=== PATIENT | female | born 1950 | race Caucasian/White ===

== ENCOUNTER → 2017-02-17 | Outpatient (CLI) | payer SELFPAY ==
--- NOTE | 2017-02-18 08:45 | MM ---
Reason for exam: screening (asymptomatic). Baseline mammogram. History: Patient is postmenopausal and had first child at age 31. Physical Findings: Nurse did not find any significant physical abnormalities on exam. MG Screening Mammo w CAD Bilateral CC and MLO view(s) were taken. The breast tissue is heterogeneously dense. This may lower the sensitivity of mammography. Focal asymmetry in the left upper outer quadrant, anterior position. These results were verbally communicated with the patient and result sheet given to the patient on 02/17/17. ASSESSMENT: Benign, BI-RAD 2 RECOMMENDATION: Routine screening mammogram of both breasts in 1 year.
== END | disposition home or self-care (01) ==
LOC: RADMAMWWP 15:59
PROVIDERS: ATTEND Internal Medicine
DX: Z12.31 Encounter for screening mammogram for malignant neoplasm of breast (principal)

== ENCOUNTER 2017-10-15 19:16 | Emergency (ER) | payer OTHER ==
--- NOTE | 2017-10-15 20:21 | ED ---
Lower Extremity Injury HPI - General Chief Complaint: Extremity Injury, Lower Stated Complaint: Toe pain Source: patient Mode of arrival: ambulatory Limitations: no limitations - History of Present Illness Initial Comments: Patient is a 67-year-old female presenting to the emergency department for right foot pain. Patient states that she has a history of Raynaud's and is having swelling and pain in the right fourth toe. She states that she may have injured it approximately 2-3 days ago when she tripped on the stairs. However, she is not sure if this is a result in the pain. She states that the rest of her foot is at baseline and that is usually cool to the touch. She states that she is concerned that there may be something else: All of the foot in that she has normal range of motion as well sensation foot. - Related Data Home Medications Medication Instructions Recorded Confirmed Cholecalciferol [Vitamin D3] 2,000 unit PO DAILY 10/15/17 10/15/17 Verapamil HCl [Verapamil ER] 180 mg PO HS 10/15/17 10/15/17 Allergies Allergy/AdvReac Type Severity Reaction Status Date / Time grapefruit AdvReac Unknown Verified 10/15/17 20:23 Review of Systems ROS Statement: Those systems with pertinent positive or pertinent negative responses have been documented in the HPI. Constitutional: Negative for chills, fatigue and fever. HENT: Negative for congestion. Respiratory: Negative for chest tightness, shortness of breath and wheezing. Cardiovascular: Negative for chest pain and palpitations. Gastrointestinal: Negative for abdominal pain. Negative for abdominal distention , diarrhea, nausea and vomiting. Genitourinary: Negative for dysuria. Musculoskeletal: Negative for back pain, neck pain and neck stiffness. Positive for right fourth toe pain and swelling Skin: Positive for color change Neurological: Negative for dizziness, speech difficulty, weakness and light- headedness. Psychiatric/Behavioral: Negative for agitation and confusion. The patient is not nervous/anxious. ROS Other: All systems not noted in ROS Statement are negative. Past Medical History Additional Past Medical History / Comment(s): Raynauds. Irregular heartbeat. History of Any Multi-Drug Resistant Organisms: None Reported Past Surgical History: Tonsillectomy Past Psychological History: No Psychological Hx Reported Smoking Status: Never smoker Past Alcohol Use History: None Reported Past Drug Use History: None Reported General Exam - General Exam Comments Initial Comments: Physical Exam Constitutional: Pt is oriented to person, place, and time. Pt appears well- developed and well-nourished. No distress. HENT: Head: Normocephalic and atraumatic. Eyes: EOM are normal. Neck: Normal range of motion. Neck supple. Cardiovascular: Normal rate, regular rhythm, S1 normal, S2 normal and normal heart sounds. Exam reveals no gallop and no friction rub. No murmur heard. 2+ DP and PT pulses on both feet present. Capillary refill less than 2 seconds and the nailbed of the fourth right toe Pulmonary/Chest: Effort normal and breath sounds normal. No tachypnea and no bradypnea. No respiratory distress. No wheezes or rales noted. Abdominal: Soft. Bowel sounds are normal. Pt exhibits no shifting dullness, no distension, no pulsatile liver, no fluid wave, no abdominal bruit and no ascites. There is no tenderness. There is no rigidity, no rebound, no guarding, no tenderness at McBurney's point and negative Escoto's sign. Musculoskeletal: Normal range of motion of right foot. Ecchymosis and effusion of the right fourth toe. Neurological: Pt is alert and oriented to person, place, and time. No cranial nerve deficit. Skin: Skin is warm and dry. No rash noted. Pt is not diaphoretic. No erythema. No pallor. Psychiatric: Pt has a normal mood and affect. Pt behavior is normal. Thought content normal. Limitations: no limitations Course Vital Signs 10/15/17 19:40 Temperature 98.1 F Pulse Rate 88 Respiratory 18 Rate Blood Pressure 190/92 O2 Sat by Pulse 98 Oximetry Medical Decision Making - Medical Decision Making X-ray showed no evidence of acute pathology including fracture. It is felt that the symptoms that the patient has as well as exam findings are consistent with traumatic injury and not vascular injury. Nonetheless, Dr. Bernal was contacted and he agreed to see the patient within the next few days for evaluation of vasculature. This is explained to patient and she is agreeable to plan. Disposition Clinical Impression: Toe pain Disposition: HOME SELF-CARE Condition: Good Instructions: Foot Contusion (ED) Referrals: Bladimir Higuera MD [Primary Care Provider] - 1-2 days Memo Bernal MD [STAFF PHYSICIAN] - 1-2 days Time of Disposition: 21:14
--- NOTE | 2017-10-15 20:50 | XR ---
EXAMINATION TYPE: XR foot complete RT DATE OF EXAM: 10/15/2017 COMPARISON: NONE HISTORY: 67-year-old female pain and redness mostly around the fourth digit TECHNIQUE: 3 views FINDINGS: Osteopenia. Moderate degenerative change first MTP joint. Moderate-sized plantar calcaneal spur. No a cute fracture, subluxation, or dislocation. Bipartite tibial sesamoid. IMPRESSION: No acute osseous abnormality seen. Moderate first MTP joint OA and a plantar calcaneal spur.
--- NOTE | 2017-10-15 21:37 | ED ---
Medical Decision Making - Medical Decision Making Initially the patient was somewhat agreeable to the plan of following up. However, she is insistent that the toe may be causing redness and that she did not hit it. It was extensively advised with both her and her son who is bedside that this is likely not felt to be a vascular issue. It was also offered that she could be transferred to a different facility that had immediate arterial Doppler studies available. However, she continued to deny the request and stated that she wanted a second opinion from a different physician. It is explained that both myself and Dr. Griffiths do not feel that it is a vascular issue but that we would be more than happy to send her to a different facility that could have immediate studies available. Patient became angry and stated that she wanted a second opinion from anyone including the nurse. Nursing staff did evaluate the patient and counseled the patient accordingly. Patient is also concerned that she could go home and have a stroke in that she has a cardiac condition. Based on clinical exam, there is no indication that the patient has cardiac or neuro pathology at the time of discharge. Patient was however advised to return to emergency department and she felt that her clinical course was deteriorating. Disposition Clinical Impression: Toe pain Disposition: HOME SELF-CARE Condition: Good Instructions: Foot Contusion (ED) Referrals: Bladimir Higuera MD [Primary Care Provider] - 1-2 days Memo Bernal MD [STAFF PHYSICIAN] - 1-2 days
[2017-10-15 21:47] VITALS: BP 131/78; PULSE 68; RESP 16; TEMP 97.8
== END 2017-10-15 21:47 | disposition home or self-care (01) ==
LOC: EC 19:16
DX: M79.674 Pain in right toe(s) (principal); M79.89 Other specified soft tissue disorders; Z91.018 Allergy to other foods; Z79.899 Other long term (current) drug therapy
CPT/HCPCS: 99283

== ENCOUNTER 2022-11-17 18:38 | Inpatient (IN) | payer MEDICARE ==
--- NOTE | 2022-11-17 20:20 | ED ---
Fall HPI - General Chief Complaint: Fall Stated Complaint: Fall Time Seen by Provider: 11/17/22 19:09 Source: patient, EMS Mode of arrival: EMS - History of Present Illness Initial Comments: Patient is a 72-year-old female presenting with chief complaint of left leg pain after a trip and fall today. Patient states that she tripped on uneven pavement earlier today. She denies any head injury, loss of consciousness, or use of blood thinners. He was given morphine by EMS and states that greatly improved her pain. No headache, dizziness, nausea, vomiting, vision or hearing changes, neck pain or stiffness, chest pain, difficulty breathing, numbness, tingling. - Related Data Home Medications Medication Instructions Recorded Confirmed Verapamil HCl [Verapamil ER] 180 mg PO DAILY 10/15/17 11/17/22 Allergies Allergy/AdvReac Type Severity Reaction Status Date / Time grapefruit AdvReac Unknown Verified 11/17/22 19:35 Review of Systems ROS Statement: Those systems with pertinent positive or pertinent negative responses have been documented in the HPI. ROS Other: All systems not noted in ROS Statement are negative. Past Medical History Additional Past Medical History / Comment(s): Raynauds. Irregular heartbeat. History of Any Multi-Drug Resistant Organisms: None Reported Past Surgical History: Tonsillectomy Past Psychological History: No Psychological Hx Reported Smoking Status: Never smoker Past Alcohol Use History: None Reported Past Drug Use History: None Reported General Exam Limitations: no limitations General appearance: alert, in no apparent distress Head exam: Present: atraumatic, normocephalic, normal inspection Eye exam: Present: normal appearance, EOMI Neck exam: Present: normal inspection, full ROM Respiratory exam: Present: normal lung sounds bilaterally. Absent: respiratory distress, wheezes, rales, rhonchi, stridor Cardiovascular Exam: Present: regular rate, normal rhythm, normal heart sounds. Absent: systolic murmur, diastolic murmur, rubs, gallop, clicks Left Hip exam: Present: tenderness. Absent: full ROM Upper Leg exam: Present: tenderness. Absent: full ROM Neurological exam: Present: alert, oriented X3, CN II-XII intact Expanded Patient oriented to: Present: person, place, time Speech: Present: fluid speech Eye Response: (4) open spontaneously Motor Response: (6) obeys commands Verbal Response: (5) oriented Cut Off Total: 15 Psychiatric exam: Present: normal affect, normal mood Skin exam: Present: warm, dry, intact, normal color. Absent: rash Course Vital Signs 11/17/22 11/17/22 11/17/22 18:47 18:55 20:27 Temperature 97.2 F L Pulse Rate 90 93 Respiratory 20 16 Rate Blood Pressure 204/121 195/107 195/98 O2 Sat by Pulse 98 100 Oximetry 11/17/22 21:47 Temperature Pulse Rate 88 Respiratory 16 Rate Blood Pressure 173/94 O2 Sat by Pulse Oximetry Medical Decision Making - Medical Decision Making Was pt. sent in by a medical professional or institution (, PA, DIGITAL HARDWARE DESIGN ENGINEER, urgent care, hospital, or [facility]...) When possible be specific @ -No Did you speak to anyone other than the patient for history (EMS, parent, family, police, friend...)? What history was obtained from this source @ -No Did you review nursing and triage notes (agree or disagree)? Why? @ -I reviewed and agree with nursing and triage notes Were old charts reviewed (outside hosp., previous admission, EMS record, old EKG, old radiological studies, urgent care reports/EKG's, [facility] records)? Report findings @ -No old charts were reviewed Differential Diagnosis (chest pain, altered mental status, abdominal pain women, abdominal pain men, vaginal bleeding, weakness, fever, dyspnea, syncope, headache, dizziness, GI bleed, back pain, seizure, CVA, palpatations, mental health, musculoskeletal)? @ -Differential includes fracture, sprain, strain, this is not an all inclusive list EKG interpreted by me (3pts min.). @ -As above X-rays interpreted by me (1pt min.). @ -X-ray shows comminuted intertrochanteric fracture of the left femur extending into the metaphysis CT interpreted by me (1pt min.). @ -None done U/S interpreted by me (1pt. min.). @ -None done What testing was considered but not performed or refused? (CT, X-rays, U/S, labs)? Why? @ -CT of the brain and cervical spine, CBC CMP, and EKG are ordered for surgical clearance, however patient is refusing at this time stating "I don't know if I will get the surgery". Patient is also stating that she does not need head CT because she did not hit her head, refusing CT What meds were considered but not given or refused? Why? @ -None Did you discuss the management of the patient with other professionals (professionals i.e. , PA, DIGITAL HARDWARE DESIGN ENGINEER, lab, RT, psych nurse, social media editor, drilling machine operator, teacher, driver's license reviewing officer, case mgr)? Give summary @ -Discussed with orthopedist director alumni relations Dr. Stokes Was smoking cessation discussed for >3mins.? @ -No Was critical care preformed (if so, how long)? @ -No Were there social determinants of health that impacted care today? How? (Homelessness, low income, unemployed, alcoholism, drug addiction, transportation, low edu. Level, literacy, decrease access to med. care, intermediate, rehab)? @ -No Was there de-escalation of care discussed even if they declined (Discuss DNR or withdrawal of care, Hospice)? DNR status @ -No What co-morbidities impacted this encounter? (DM, HTN, Smoking, COPD, CAD, Cancer, CVA, ARF, Chemo, Hep., AIDS, mental health diagnosis, sleep apnea, morb id obesity)? @ -None Was patient admitted / discharged? Hospital course, mention meds given and route, prescriptions, significant lab abnormalities, going to OR and other pertinent info. @ -Patient is a 72-year-old female presenting for evaluation post fall today. Patient tripped and fell on uneven pavement. She is complaining of left-sided leg and hip pain. On physical examination there are no focal neurological deficits. Patient denies head injury, loss of consciousness, use of blood thinners. Patient is refusing head CT, states that she did not hit her head and doesn't need one. X-ray shows intertrochanteric fracture of the femur. I spoke with Dr. Stokes who accepted admission. Internal medicine was consulted for surgical clearance. EKG, lab work are ordered, however patient is refusing these at this time stating that she does not know if she will accept surgery. I explained to the patient that surgery is necessary for repair of the fracture. She is agreeable with admission at this time. I discussed this case with my attending Dr. Hernandez Undiagnosed new problem with uncertain prognosis? @ -No Drug Therapy requiring intensive monitoring for toxicity (Heparin, Nitro, Insulin, Cardizem)? @ -No Were any procedures done? @ -No Diagnosis/symptom? @ -Intertrochanteric femur fracture Acute, or Chronic, or Acute on Chronic? @ -Acute Uncomplicated (without systemic symptoms) or Complicated (systemic symptoms)? @ -Complicated Side effects of treatment? @ -No Exacerbation, Progression, or Severe Exacerbation? @ -No Poses a threat to life or bodily function? How? (Chest pain, [place], [place], pneumonia, PE, COPD, DKA, ARF, appy, cholecystitis, CVA, Diverticulitis, Homicidal, Suicidal, threat to staff... and all critical care pts) @ -Yes - Lab Data Result diagrams: 11/17/22 22:30 11/17/22 22:30 Disposition Clinical Impression: Femur fracture Disposition: ADMITTED IP TO THIS [facility] Condition: Fair Time of Disposition: 20:58 Decision to Admit Reason: Admit from EC Decision Date: 11/17/22 Decision Time: 20:58
--- NOTE | 2022-11-17 20:28 | XR ---
EXAMINATION TYPE: XR Hip LT and AP Pelvis, XR femur LT DATE OF EXAM: 11/17/2022 8:07 PM INDICATION: Patient age:Female; 72 years old; Reason for study: fall; PHH. COMPARISON: None. TECHNIQUE: The left hip was examined in the frontal and lateral projections and a AP pelvis. Left femur was evaluated in frontal and lateral views. FINDINGS: Comminuted intertrochanteric fracture of the left femur extending into the metaphysis. No a dditional fractures of the pelvis. Slight varus deformity. Large fragment involving the lesser trocha nter noted. IMPRESSION: Comminuted intertrochanteric fracture of the left femur extending into the metaphysis.
--- NOTE | 2022-11-17 20:29 | XR ---
EXAMINATION TYPE: XR chest 1V DATE OF EXAM: 11/17/2022 8:07 PM COMPARISON: Chest radiographs from 02/07/2013 TECHNIQUE: XR chest 1V Portable AP radiograph of the chest. CLINICAL INDICATION:Female, 72 years old with history of FALL; FINDINGS: Lungs/Pleura: There is no evidence of pleural effusion, focal consolidation, or pneumothorax. Pulmonary vascularity: Unremarkable. Heart/mediastinum: Cardiomediastinal silhouette is unremarkable. Right hilum is more prominent than p rior in 2011. Musculoskeletal: No acute osseous pathology. IMPRESSION: 1. No acute cardiopulmonary disease/process. 2. Increased prominence of the right hilum consider further evaluation with CT chest on a nonemergen t basis.
[2022-11-17] MEDS ORDERED: MORPHINE SULFATE 4 MG/ML SYRINGE IV PRN (20:55)
[2022-11-17] MEDS ORDERED: KETOROLAC 15 MG/ML 1 ML VIAL IVP PRN (20:55)
[2022-11-17] MEDS ORDERED: NALOXONE 0.4 MG/ML 1 ML VIAL IV PRN (20:55)
[2022-11-17 22:44] LABS: Basophils % (A) 0 %; Eosinophils # (A) 0.1 k/uL (0-0.7); Eosinophils % (A) 1 %; HCT 39.2 % (34.0-46.0); HGB 12.9 gm/dL (11.4-16.0); Lymphocytes # (A) 0.7 k/uL (1.0-4.8); Lymphocytes % (A) 7 %; MCH 32.3 pg (25.0-35.0); MCV 97.7 fL (80.0-100.0); Mean Platelet Volume 7.2; Monocytes # (A) 0.4 k/uL (0-1.0); Monocytes % (A) 4 %; Neutrophils # (A) 9.1 k/uL (1.3-7.7); Neutrophils % (A) 88 %; Platelet Count 168 k/uL (150-450); RBC 4.01 m/uL (3.80-5.40); RDW 12.4 % (11.5-15.5); WBC 10.4 k/uL (3.8-10.6)
[2022-11-17 22:54] LABS: ALT 20 U/L (4-34); AST 35 U/L (14-36); African American GFR (CKD) >90 (>60 ml/min/1.73 sqM); Albumin 3.8 g/dL (3.5-5.0); Alkaline Phosphatase 81 U/L (38-126); Anion Gap 3 mmol/L; Blood Urea Nitrogen 14 mg/dL (7-17); Calcium 8.4 mg/dL (8.4-10.2); Carbon Dioxide 28 mmol/L (22-30); Chloride 105 mmol/L (98-107); Glucose 117 mg/dL (74-99); Non-African American GFR(CKD) >90 (>60 ml/min/1.73 sqM); Sodium 136 mmol/L (137-145); Total Bilirubin 0.8 mg/dL (0.2-1.3); Total Protein 6.2 g/dL (6.3-8.2)
[2022-11-17 22:58] LABS: Potassium 4.3 mmol/L (3.5-5.1)
--- NOTE | 2022-11-18 04:55 | P.CONS ---
History of Present Illness - Reason for Consult Consult date: 11/18/22 surgical clearance - Chief Complaint trip and fall - History of Present Illness 72 year old female with raynauds and irregular heart beat patient at her baseline status of health, she suffered from a trip and fall today , resulted in severe pain in her left hip and left side of the chest, denies any head injury , passing out , dizziness . SOB, nausea , vomiting, or any focal nuero deficits. patient cam e in via EMS, received morphine en route that helped with pain . no open wounds. no numbness or tingling in left foot she denies any recent episodes of CHF, WA, syncope, seizure, arrhythmia. she is active at baseline able to walk long distances and do yard and house chores. Review of Systems Pertinent positives as noted in HPI. All other systems were reviewed and are negative Past Medical History Additional Past Medical History / Comment(s): Raynauds. Irregular heartbeat. History of Any Multi-Drug Resistant Organisms: None Reported Past Surgical History: Tonsillectomy Past Psychological History: No Psychological Hx Reported Smoking Status: Never smoker Past Alcohol Use History: None Reported Past Drug Use History: None Reported Medications and Allergies Home Medications Medication Instructions Recorded Confirmed Type Verapamil HCl [Verapamil ER] 180 mg PO DAILY 10/15/17 11/17/22 History Allergies Allergy/AdvReac Type Severity Reaction Status Date / Time grapefruit AdvReac Unknown Verified 11/17/22 19:35 Physical Exam Vitals: Vital Signs Temp Pulse Pulse Resp BP BP Pulse Ox 11/18/22 02:00 98.1 F 85 17 161/88 98 11/17/22 21:47 88 16 173/94 11/17/22 20:27 93 16 195/98 100 11/17/22 18:55 195/107 11/17/22 18:47 97.2 F L 90 20 204/121 98 Intake and Output 11/17/22 11/17/22 11/18/22 14:59 22:59 06:59 Other: Voiding Method Indwelling Catheter Weight 53.524 kg 53.524 kg Constitutional: No acute distress, conversant, pleasant Eyes: Anicteric sclerae, moist conjunctiva, Pupils equal round reactive to light ENMT: NC/AT Oropharynx clear, no erythema, or exudates Neck: Supple, no masses, or JVD No carotid bruits No thyromegaly Lungs: Clear to auscultation Clear to percussion Normal respiratory effort, no accessory muscle use Cardiovascular: Heart regular in rate and rhythm, No murmurs, gallops, or rubs No peripheral edema Abdominal: Soft Nontender, no guarding, rebound or rigidity Abdomen moving with respiration Normoactive bowel sounds No hepatomegaly, No splenomegaly No palpable mass No abdominal wall hernia noted Skin: Normal temperature, tone, texture, turgor No induration No subcutaneous nodules No rash, lesions No ulcers Extremities: shortening and external rotation of the left lower extremity No digital cyanosis No clubbing Pedal pulses intact and symmetrical Radial pulses intact and symmetrical No calf tenderness Psychiatric: Alert and oriented to person, place and time Appropriate affect fair judgement Neuro Muscles Strength 5/5 in all 4 extremities , except limited exam over left lower extremity due to pain Sensation to light touch grossly present throughout Cranial nerves II-XII grossly intact Lymphatics: no palpable cervical or supraclavicular lymph nodes Results CBC & Chem 7: 11/17/22 22:30 11/17/22 22:30 Labs: Abnormal Lab Results - Last 24 Hours (Table) 11/17/22 11/17/22 Range/Units 22:30 22:30 Neutrophils # 9.1 H (1.3-7.7) k/uL Lymphocytes # 0.7 L (1.0-4.8) k/uL Sodium 136 L (137-145) mmol/L Creatinine 0.50 L (0.52-1.04) mg/dL Glucose 117 H (74-99) mg/dL Total Protein 6.2 L (6.3-8.2) g/dL Assessment and Plan Assessment: acute comminuted left intertrochanteric fracture of left femur , secondary to mechanical fall. await surgical input h/o of irregular heart beat h/o raynauds resume verapamil 180 mg daily PO 72 year old female presented with acute left intertrochanteric femur fracture. patient denies any recent episodes of acute WA, CHF, arrhythmia , syncope, or seizure. she is active at baseline able to perform yard and house chores, and walk long distances. active at level > 4 METS. she denies history of stroke, CHF, CAD, DM , or CKD or HLD. patient can proceed to planned surgical intervention of her left femur fracture with moderate but acceptable perioperative cardiovascular risk with no identifiable modifiable risk factors. this has been explained to the patient and her son, she verbalized understanding , but she would like to speak with her clinical application consultant before any decision regarding surgery , and also would like to postpone surgery for a day or two before proceeding. EKG reviewed showing NSR , no acute ST changes , or arrhythmias labs reviewed and unremarkable full code DVT PPX heparin sc tid pain control with morphine 4 mg IVP PRN q3hrs toradol 15 mg IVP prn q6hr xanax po 0.25 prn for anxiety zofran prn 4 mg q8hr for nausea vomiting thank you for this consultation
[2022-11-18] MEDS ORDERED: ALPRAZolam 0.25 MG TAB PO PRN (04:56)
[2022-11-18] MEDS ORDERED: ONDANSETRON 4 MG/2 ML VIAL IVP PRN (04:56)
[2022-11-18] MEDS: SODIUM CHLORIDE 0.9% 1,000 ML IV SCH (05:35)
--- NOTE | 2022-11-18 08:52 | P.CRDCN ---
History of Present Illness Consult date: 11/18/22 Reason for Consult (text): patient requesting to talk to cardio History of present illness: History of present illness: This is a 72-year-old female patient of Dr. Ambrose with past medical history of paroxysmal atrial fibrillation refusing anticoagulation, paroxysmal atrial tachycardia - asymptomatic, dyslipidemia not on statin, hypertension uncontrolled patient refuses to take medication. Patient was last seen in the office in February 2022. No medication changes were made at that time. Patient presented to the hospital due to trip and fall with pain in her left hip and found to have a left femur fracture. At this time, patient is refusing to undergo surgical intervention. Patient denies having any chest pain or shortness of breath. EKG sinus rhythm with no acute ST changes Chest x-ray: no acute cardiopulmonary disease. Increased prominence of the right hilum consider further evaluation with CT. Left hip x-ray, femur, pelvis: Comminuted intertrochanteric fracture of the left femur extending into the metaphysis WBC 10.4, hemoglobin 12.9, platelet count 129. Sodium 136, potassium 4.3, BUN 14 creatinine 0.5. Blood sugar 117. Liver function tests are normal. Home cardiac medications: verapamil 180 mg daily Echocardiogram 2012 revealed normal EF, thickened mitral leaflet, moderate mitral regurgitation and RV mildly increased RVSP Review Of Systems: At the time of my evaluation: Constitutional: No fever, no chills. No weakness, fatigue no lethargy. EENT: No headache. No dizziness. Lungs: No shortness of breath, cough, no sputum production. No wheezing. Cardiovascular: No chest pain, no lower extremity edema. No palpitations. No paroxysmal nocturnal dyspnea. No orthopnea. No lightheadedness or dizziness. No syncopal episodes. Abdominal: No abdominal pain. No nausea, vomiting. No diarrhea. Genitourinary: Tracy in place. Musculoskeletal: No myalgias. No muscle weakness, no frequent falls. Severe left hip pain Integumentary: No wounds. No rash. No unusual bruising. Neurologic: No aphasia. No facial droop. No change in mentation. No head injury. No headache. Physical examination: Gen: This is a 72-year-old female. She is resting in bed and appears to be quite uncomfortable due to pain in the left hip. VS: reviewed HEENT: Head is atraumatic, normocephalic. Pupils equal, round. Sclerae is anicteric. NECK: Supple. No JVD. . LUNGS: Clear to auscultation. No wheezes or rhonchi. No intercostal retractions. HEART: Regular rate and rhythm. No murmur. ABDOMEN: Soft No tenderness. EXTREMITIES: No pedal edema. No calf tenderness. NEUROLOGICAL: Patient is awake, alert and oriented x3. Assessment: Left femur fracture Paroxysmal atrial fibrillation refusing anticoagulation History of paroxysmal atrial tachycardia Dyslipidemia not on statin Hypertension Plan: Resume verapamil unknown name milligrams daily Obtain 2-D echocardiogram and Doppler study to assess cardiac structure and function Further recommendations to follow based upon clinical course Thank you kindly for this consultation. Nurse practitioner note has been reviewed, I agree with documented findings and plan of care. Patient was seen and examined. Past Medical History Additional Past Medical History / Comment(s): Raynauds. Irregular heartbeat. History of Any Multi-Drug Resistant Organisms: None Reported Past Surgical History: Tonsillectomy Past Psychological History: No Psychological Hx Reported Smoking Status: Never smoker Past Alcohol Use History: None Reported Past Drug Use History: None Reported Medications and Allergies Home Medications Medication Instructions Recorded Confirmed Type Verapamil HCl [Verapamil ER] 180 mg PO DAILY 10/15/17 11/17/22 History Allergies Allergy/AdvReac Type Severity Reaction Status Date / Time grapefruit AdvReac Unknown Verified 11/17/22 19:35 Physical Exam Vitals: Vital Signs Temp Pulse Pulse Resp BP BP Pulse Ox 11/18/22 02:00 98.1 F 85 17 161/88 98 11/17/22 21:47 88 16 173/94 11/17/22 20:27 93 16 195/98 100 11/17/22 18:55 195/107 11/17/22 18:47 97.2 F L 90 20 204/121 98 Intake and Output 11/17/22 11/17/22 11/18/22 14:59 22:59 06:59 Output Total 1000 Balance -1000 Output: Urine 1000 Other: Voiding Method Indwelling Catheter Weight 53.524 kg 53.524 kg Results 11/17/22 22:30 11/17/22 22:30 Cardiac Enzymes 11/17/22 Range/Units 22:30 AST 35 (14-36) U/L CBC 11/17/22 Range/Units 22:30 WBC 10.4 (3.8-10.6) k/uL RBC 4.01 (3.80-5.40) m/uL Hgb 12.9 (11.4-16.0) gm/dL Hct 39.2 (34.0-46.0) % Plt Count 168 (150-450) k/uL Comprehensive Metabolic Panel 11/17/22 Range/Units 22:30 Sodium 136 L (137-145) mmol/L Potassium 4.3 (3.5-5.1) mmol/L Chloride 105 (98-107) mmol/L Carbon Dioxide 28 (22-30) mmol/L BUN 14 (7-17) mg/dL Creatinine 0.50 L (0.52-1.04) mg/dL Glucose 117 H (74-99) mg/dL Calcium 8.4 (8.4-10.2) mg/dL AST 35 (14-36) U/L ALT 20 (4-34) U/L Alkaline Phosphatase 81 (38-126) U/L Total Protein 6.2 L (6.3-8.2) g/dL Albumin 3.8 (3.5-5.0) g/dL Current Medications Generic Name Dose Route Start Last Admin Trade Name Freq PRN Reason Stop Dose Admin Alprazolam 0.25 mg 11/18/22 04:56 Alprazolam 0.25 Mg Tab PO TID PRN Anxiety Heparin Sodium (Porcine) 5,000 unit 11/18/22 08:00 Heparin Sodium,Porcine/Pf 5,000 Unit/0.5 Ml Syringe SQ Q8HR ADI Sodium Chloride 1,000 mls @ 50 mls/hr 11/17/22 21:00 11/18/22 05:35 Saline 0.9% IV Not Given .Q20H ADI Ketorolac Tromethamine 15 mg 11/17/22 20:55 Ketorolac 15 Mg/Ml 1 Ml Vial IVP 11/20/22 20:57 Q6HR PRN Moderate Pain (Scale 4 to 6) Morphine Sulfate 4 mg 11/17/22 20:55 Morphine Sulfate 4 Mg/Ml Syringe IV Q4HR PRN Severe Pain (Scale 7 to 10) Naloxone HCl 0.2 mg 11/17/22 20:55 Naloxone 0.4 Mg/Ml 1 Ml Vial IV Q2M PRN Opioid Reversal Ondansetron HCl 4 mg 11/18/22 04:56 Ondansetron 4 Mg/2 Ml Vial IVP Q6HR PRN Nausea And Vomiting Verapamil HCl 180 mg 11/18/22 09:00 Verapamil Sr 180 Mg Tablet.Er PO DAILY ADI Intake and Output 11/17/22 11/17/22 11/18/22 14:59 22:59 06:59 Output Total 1000 Balance -1000 Output: Urine 1000 Other: Voiding Method Indwelling Catheter Weight 53.524 kg 53.524 kg Patient Weight 11/18/22 06:59 Weight 53.524 kg 11/17/22 22:30 11/17/22 22:30
--- NOTE | 2022-11-18 10:02 | P.HPOR ---
History of Present Illness H&P Date: 11/18/22 Chief Complaint: Left hip pain. This is a 72-year-old female admitted through the emergency department last evening after falling and sustaining injury to her left hip. On exam and x-ray in the emergency department she is found to have a displaced three-part intertrochanteric fracture of left hip. The patient has been seen by cardiology and internal medicine. She has been cleared for surgery today. However, the patient is refusing any surgical intervention today. She states that the man should talk to last evening told her she did not have to have surgery and could take a few days to think about it. She did not let me do a full exam on her. Past Medical History Additional Past Medical History / Comment(s): Raynauds. Irregular heartbeat. History of Any Multi-Drug Resistant Organisms: None Reported Past Surgical History: Tonsillectomy Past Psychological History: No Psychological Hx Reported Smoking Status: Never smoker Past Alcohol Use History: None Reported Past Drug Use History: None Reported Medications and Allergies Home Medications Medication Instructions Recorded Confirmed Type Verapamil HCl [Verapamil ER] 180 mg PO DAILY 10/15/17 11/17/22 History Allergies Allergy/AdvReac Type Severity Reaction Status Date / Time grapefruit AdvReac Unknown Verified 11/17/22 19:35 Physical Examination Osteopathic Statement: *. No significant issues noted on an osteopathic structural exam other than those noted in the History and Physical/Consult. This is a 72-year-old female in some distress secondary to anxiety and possibly paranoia. My exam is limited as she did not cooperate with exam. I did note that she has a significantly shortened and externally rotated left lower extremity. She is moving her feet and ankles in bed. Neurovascular status is grossly intact. Results X-rays reveal a displaced three-part intertrochanteric/near subtrochanteric fracture of the left hip. - Labs Labs: Abnormal Lab Results - Last 24 Hours (Table) 11/17/22 11/17/22 Range/Units 22:30 22:30 Neutrophils # 9.1 H (1.3-7.7) k/uL Lymphocytes # 0.7 L (1.0-4.8) k/uL Sodium 136 L (137-145) mmol/L Creatinine 0.50 L (0.52-1.04) mg/dL Glucose 117 H (74-99) mg/dL Total Protein 6.2 L (6.3-8.2) g/dL H & H 11/17/22 Range/Units 22:30 Hgb 12.9 (11.4-16.0) gm/dL Hct 39.2 (34.0-46.0) % Result Diagrams: 11/19/22 05:39 11/19/22 05:39 Assessment and Plan (1) Intertrochanteric fracture of left hip Current Visit: Yes Status: Acute Code(s): S72.142A - DISPLACED IN TERTROCHANTERIC FRACTURE OF LEFT FEMUR, INIT SNOMED Code(s): 030158716 (2) History of noncompliance with medical treatment Current Visit: Yes Status: Acute Code(s): Z91.199 - PT NONCOMPL WITH OTHER MED TRTMT AND REGIMEN D/T UNSP REASON SNOMED Code(s): 446076546 (3) Femur fracture Current Visit: Yes Status: Acute Code(s): S72.90XA - UNSP FRACTURE OF UNSP FEMUR, INIT ENCNTR FOR CLOSED FRACTURE SNOMED Code(s): 37035265 Plan: The clinical and x-ray findings are discussed with the patient in detail. I spent about 30 minutes with the patient discussing risk versus benefitSurgical intervention. I advised the patient that without surgery she would be unable to even sit up or turn in bed without severe pain. She would likely be bedridden for the rest of her life. The patient was asking the same questions repeatedly and telling me the same things over and over during my exam with her. The patient's son came in during the evaluation and she began accusing him of spreading tumors all over town about her and her injury. I asked the patient's son if she had any problems with memory and she became very upset. She was very verbally abusive to her son in the room. According to cardiology there are significant issues with noncompliance with her treatment and care. The patient basically is refusing surgery at this point. I do not believe that she understands the consequences of her decision. I did let the son kncelina that I recommend a psychiatric evaluation. I did put an order for a psychiatric evaluation today if possible. The patient is her own power of estate attorney. We cannot take her to surgery without her consent. I want to be sure that she does understand potential risks and consequences of refusing surgical intervention for her injury. Addendum: I talked with the patient independently several hours later after she had some time to process. She was agreeable to the surgery and seems to understand the implications of her injury and treatment options. She was able to describe the surgery and a simple risk/benefit profile. We will proceed with surgery.
[2022-11-18] MEDS: VERAPAMIL SR 180 MG TABLET.ER PO SCH (11:25)
--- NOTE | 2022-11-18 14:11 | P.CN ---
Psychiatric Consult - . Consult date: 11/18/22 Consult:: 11/18/22 13:36 patient was attempted to be seen today by marine underwriter however nurse claims that patient was after all agreeable to consent to the surgery and apparently her son had signed for the surgery. marine underwriter spoke with DAVID Farris over the phone from [facility] who gave further information and states that patient was now agreeable to have the surgery. she called her attending Dr Abad and returned call back to marine underwriter and they are agreeable to try to do emergent surgery tonight however are requesting a full psych assessment tomorrow once patient is post op. Phytopathology Teacher will evaluate patient tomorrow afternoon. please call with any questions or concerns.
[2022-11-18] MEDS: HEPARIN SODIUM,PORCINE/PF 5,000 UNIT/0.5 ML SYRINGE SQ SCH ×3 (14:36→23:16)
--- NOTE | 2022-11-18 15:11 | P.PN ---
Progress Note - Text Progress Note Date: 11/18/22 Some physicians hospitalist follow-up note: Patient seen and examined at bedside. Patient was very emotional today. Patient was very concerned about her surgery today. Patient states that she does not want to have surgery until she gets her self together and everything written down. Patient is refusing pain medications at this time. Psychiatry has been consulted.
[2022-11-18 17:14] LABS: Partial Thromboplastin Time 25.8 sec (22.0-30.0); Prothrombin Time 10.6 sec (9.0-12.0)
[2022-11-18] MEDS ORDERED: LACTATED RINGERS 1,000 ML IV ONE ×2 (17:25→19:15)
[2022-11-18] MEDS ORDERED: SODIUM CHLORIDE 0.9% 50 ML with ceFAZolin 2,000 MG IV ONE ×4 (17:57)
[2022-11-18] MEDS ORDERED: MAGNESIUM HYDROXIDE 2,400 MG/10 ML CUP PO PRN (19:28)
[2022-11-18] MEDS ORDERED: NALOXONE 0.4 MG/ML 1 ML VIAL IV PRN (19:28)
[2022-11-18] MEDS ORDERED: HYDROmorphone 0.5 MG/0.5 ML SYRINGE IVP PRN ×3 (19:28)
[2022-11-18] MEDS ORDERED: TEMAZEPAM 15 MG CAP PO PRN (19:28)
[2022-11-18] MEDS ORDERED: HYDROcodone/APAP 5-325MG 1 EACH TAB PO PRN ×2 (19:28)
[2022-11-18 19:56] LABS: Basophils % (A) 0 %; Eosinophils % (A) 0 %; HCT 40.5 % (34.0-46.0); HGB 13.7 gm/dL (11.4-16.0); Lymphocytes # (A) 1.1 k/uL (1.0-4.8); Lymphocytes % (A) 13 %; MCH 32.2 pg (25.0-35.0); MCHC 33.7 g/dL (31.0-37.0); MCV 95.5 fL (80.0-100.0); Mean Platelet Volume 7.2; Monocytes # (A) 0.6 k/uL (0-1.0); Monocytes % (A) 7 %; Neutrophils % (A) 79 %; Platelet Count 170 k/uL (150-450); RBC 4.24 m/uL (3.80-5.40); RDW 12.4 % (11.5-15.5); WBC 8.9 k/uL (3.8-10.6)
--- NOTE | 2022-11-18 20:08 | XR ---
EXAMINATION TYPE: XR Hip Complete LT DATE OF EXAM: 11/18/2022 COMPARISON: NONE HISTORY: Hip fracture TECHNIQUE: 7 views FINDINGS: Multiple fluoroscopic images were obtained that show placement of intramedullary robert and tr ansverse screw fixing the intertrochanteric fracture left femur. There is 1 minute 33 seconds fluoros copy time recorded. IMPRESSION: No complicating process seen.
[2022-11-18] MEDS: SENNOSIDES-DOCUSATE SODIUM 1 EACH TAB PO SCH (23:17)
[2022-11-19] MEDS: SODIUM CHLORIDE 0.9% 1,000 ML IV SCH ×2 (00:41→15:50)
[2022-11-19] MEDS: LACTATED RINGERS 1,000 ML IV SCH ×3 (00:42→15:50)
[2022-11-19 05:22] LABS: Glucose,Whole Blood 163 mg/dL (70-110)
--- NOTE | 2022-11-19 07:24 | FL ---
Fluoroscopy History: ORIF LT HIP left hip fx. 1:33 sec fl time. 3.3498 DAP.
[2022-11-19 08:51] LABS: Basophils # (A) 0.02 X 10*3/uL (0.00-0.10); Basophils % (A) 0.3 %; Eosinophils # (A) 0 X 10*3/uL (0.04-0.35); Eosinophils % (A) 0 %; HCT 32.4 % (37.2-46.3); HGB 10.7 g/dL (12.0-15.0); Immature Grans, Automated 0.3 %; Lymphocytes # (A) 0.88 X 10*3/uL (0.90-5.00); Lymphocytes % (A) 11.2 %; MCH 31.9 pg (27.0-32.0); MCV 96.7 fL (80.0-97.0); Mean Platelet Volume 9.5 fL (9.5-12.2); Monocytes # (A) 0.55 X 10*3/uL (0.20-1.00); NRBC Per 100 WBC 0 /100 WBCS (0.0-0.0); Neutrophils # (A) 6.41 X 10*3/uL (1.80-7.70); Neutrophils % (A) 81.2 %; Platelet Count 136 X 10*3/uL (140-440); RBC 3.35 X 10*6/uL (4.10-5.20); RDW 12.6 % (11.5-14.5); WBC 7.88 X 10*3/uL (4.50-10.00)
[2022-11-19 09:02] LABS: African American GFR (CKD) 99.6 (60.0-200.0); Albumin 3.7 g/dL (3.8-4.9); Albumin/Globulin Ratio 2.06 (1.60-3.17); Anion Gap 9.3 mmol/L (10.00-18.00); BUN/Creat Ratio 21.71 Ratio (12.00-20.00); Blood Urea Nitrogen 15.2 mg/dL (9.0-27.0); Calcium 8.9 mg/dL (8.7-10.3); Carbon Dioxide 25.7 mmol/L (20.0-27.5); Globulin 1.8 g/dL (1.6-3.3); Potassium 4.1 mmol/L (3.5-5.5); Total Bilirubin 0.9 mg/dL (0.30-1.20); Total Protein 5.5 g/dL (6.2-8.2)
[2022-11-19] MEDS: ENOXAPARIN 40 MG/0.4 ML SYRINGE SQ SCH (10:01)
[2022-11-19] MEDS: VERAPAMIL SR 180 MG TABLET.ER PO SCH (10:01)
[2022-11-19] MEDS: HEPARIN SODIUM,PORCINE/PF 5,000 UNIT/0.5 ML SYRINGE SQ SCH ×2 (10:36→15:39)
--- NOTE | 2022-11-19 11:36 | P.OP ---
Date of Procedure: 11/18/22 Preoperative Diagnosis: Left intertrochanteric hip fracture, unstable Postoperative Diagnosis: same Procedure(s) Performed: left hip cephalomedulary nail Implants: Juanito, short gamma nail 90mm lag screw 37.5 screw Anesthesia: spinal Surgeon: Kaitlin Abad Estimated Blood Loss (ml): 200 Pathology: none sent Condition: stable Disposition: PACU Indications for Procedure: Pt had a ground level fall that resulted in an unstable intertrochanteric fracture. We discussed treatment options and decided to proceed with CMN fixation. Description of Procedure: Patient recieved a spinal block and was moved to the Ginny table. The hip was reduced with the aid of the traction table. The leg was then prepped and draped in normal sterile fashion. A time out was performed. A 5cm incision prox and posterior to the greater trochanter was made. The guide wire was introduced into the starting point on the tip of the greater trochanter in line with the femur. This was confirmed on orthogonal views. The wire was advanced. The opening reamer was used over the guidewire. The reamer and the guide wire was removed. A ball tip wire was then inserted into the femur. Intramedullary placement was confirmed on orthoganal views. Serial reamers up to a 13mm diameter were then utilized over the wire. The nail was then attached to the jig and inserted into the femur to the appropriate depth. The cephalomedullary guide wire was inserted using the tripple sleeve canulas. The placement of the wire was center center on AP and lateral views and advance to within 5mm of the articular surface. This was measured as 90mm and the cannulated drill was then used. A 90mm lag screw was selected and inserted. tip to apex was less than 25mm. The sleeves were removed and attention turned to the distal screw. Using the jig, a 37.5mm screw was inserted into the static hole of the nail. Unfortunately, imaging revealed that the fracture looked distracted and rotated in the subtrochanteric area. The decision was made to removed the distal screw. Traction was let off and the leg was externaly rotated. This improved the reduction. A 37.mm screw was then inserted into the dynamic position to maximize the distance between the two holes. Final views demonstrated acceptable alignment of the fracture with good hardware placement. The wounds were closed with 2.0 vicryl, 4.0 monocryl, and skin glue. Wounds were dressed with gauze and tegaderm. Patient was aroused by the anesthesia team and brought back to PACU in stable condition.
--- NOTE | 2022-11-19 11:37 | P.PN ---
Subjective Progress Note Date: 11/19/22 Principal diagnosis: Left hip fracture. Status post IT nail left hip. This is a 72-year-old female who is postop day #1 status post closed reduction with insertion of intertrochanteric nail left hip. The patient is resting comfortably. She does awaken for the exam. She is much calmer her today. I'm able to have a fairly normal conversation with her this morning. She complains of minimal pain. She is refusing to take pain medications. Vital signs are stable. Objective - Vital Signs Vital signs: Vital Signs Temp 98.0 F 11/19/22 07:00 Pulse 95 11/19/22 07:00 Resp 16 11/19/22 07:00 BP 144/84 11/19/22 07:00 Pulse Ox 99 11/19/22 07:00 FiO2 Intake & Output 11/18/22 11/19/22 11/19/22 18:59 06:59 18:59 Intake Total 1050 0 Output Total 500 950 Balance 550 -950 Intake: IV 1050 0 Output: Urine 500 750 Estimated Blood Loss 200 Other: Voiding Method Indwelling Catheter Indwelling Catheter - Exam This is a 72-year-old female in no acute distress. She is alert and oriented to person and place. Exam of the left hip reveals that her dressings are clean, dry and intact. There is mild soft tissue swelling about the hip and thigh. She has full foot and ankle motion without difficulty or pain. Neurovascular status to the lower extremity is intact. - Labs CBC & Chem 7: 11/19/22 05:39 11/19/22 05:39 Labs: Abnormal Lab Results - Last 24 Hours (Table) 11/19/22 11/19/22 11/19/22 Range/Units 05:19 05:39 05:39 RBC 3.35 L (4.10-5.20) X 10*6/uL Hgb 10.7 L (12.0-15.0) g/dL Hct 32.4 L (37.2-46.3) % Plt Count 136 L (140-440) X 10*3/uL Lymphocytes # 0.88 L (0.90-5.00) X 10*3/uL Eosinophils # 0 L (0.04-0.35) X 10*3/uL Anion Gap 9.30 L (10.00-18.00) mmol/L BUN/Creatinine Ratio 21.71 H (12.00-20.00) Ratio Glucose 147 H (70-110) mg/dL POC Glucose (mg/dL) 163 H (70-110) mg/dL Total Protein 5.5 L (6.2-8.2) g/dL Albumin 3.7 L (3.8-4.9) g/dL Assessment and Plan (1) Intertrochanteric fracture of left hip Current Visit: Yes Status: Acute Code(s): S72.142A - DISPLACED INTERTROCHANTERIC FRACTURE OF LEFT FEMUR, INIT SNOMED Code(s): 289314594 (2) History of noncompliance with medical treatment Current Visit: Yes Status: Acute Code(s): Z91.199 - PT NONCOMPL WITH OTHER MED TRTMT AND REGIMEN D/T UNSP REASON SNOMED Code(s): 744674306 (3) Femur fracture Current Visit: Yes Status: Acute Code(s): S72.90XA - UNSP FRACTURE OF UNSP FEMUR, INIT ENCNTR FOR CLOSED FRACTURE SNOMED Code(s): 20676774 Plan: The clinical findings are discussed the patient. We had a discussion about possible rehabilitation placement postoperatively. Patient states that she will be going home. I advised her that we will need to see how she does with physical therapy and make further recommendations at that point. We will begin physical therapy today. Psychiatric evaluation is pending.
--- NOTE | 2022-11-19 11:38 | P.PN ---
Subjective Progress Note Date: 11/19/22 Patient this morning is feeling anxious about going home. She is concerned because she may not get enough care at home. Physical therapy was also bedside and will continue to evaluate her today. Objective - Vital Signs Vital signs: Vital Signs Temp 98.0 F 11/19/22 07:00 Pulse 95 11/19/22 07:00 Resp 16 11/19/22 07:00 BP 144/84 11/19/22 07:00 Pulse Ox 99 11/19/22 07:00 FiO2 Intake & Output 11/18/22 11/19/22 11/19/22 18:59 06:59 18:59 Intake Total 1050 0 Output Total 500 950 Balance 550 -950 Intake: IV 1050 0 Output: Urine 500 750 Estimated Blood Loss 200 Other: Voiding Method Indwelling Catheter Indwelling Catheter - Exam General examination - Alert and Oriented 3 in NAD Heart - + S1S2 no murmurs Lungs - Clear to auscultation Abdomen soft NT ND +ve BS Extremities - restricted range of motion of the left lower extremity, left hip bandages intact and dry DIGITAL COURT REPORTER - Moving all 4 extremities spontaneously Psych - appears anxious - Labs CBC & Chem 7: 11/19/22 05:39 11/19/22 05:39 Labs: Abnormal Lab Results - Last 24 Hours (Table) 11/19/22 11/19/22 11/19/22 Range/Units 05:19 05:39 05:39 RBC 3.35 L (4.10-5.20) X 10*6/uL Hgb 10.7 L (12.0-15.0) g/dL Hct 32.4 L (37.2-46.3) % Plt Count 136 L (140-440) X 10*3/uL Lymphocytes # 0.88 L (0.90-5.00) X 10*3/uL Eosinophils # 0 L (0.04-0.35) X 10*3/uL Anion Gap 9.30 L (10.00-18.00) mmol/L BUN/Creatinine Ratio 21.71 H (12.00-20.00) Ratio Glucose 147 H (70-110) mg/dL POC Glucose (mg/dL) 163 H (70-110) mg/dL Total Protein 5.5 L (6.2-8.2) g/dL Albumin 3.7 L (3.8-4.9) g/dL Assessment and Plan Assessment: acute comminuted left intertrochanteric fracture of left femur , secondary to mechanical fall. Status post hip repair Pain management as per primary team PT OT consult Psych consult was placed as patient was initially refusing surgery. However patient was then amenable to surgery so psychiatrist to see the patient after surgery. Acute blood loss anemia secondary to surgery Trend CBC h/o of irregular heart beat h/o raynauds resume verapamil 180 mg daily PO EKG from this morning shows sinus rhythm. DVT prophylaxis: Will defer to primary team
--- NOTE | 2022-11-19 11:46 | CA ---
Transthoracic Echo Report Name: Danna Light Age: 72 Gender: F : 1950 Exam Date: 11/18/2022 13:46 Exam Location: [facility] Ht (in): 64 Wt (lb): 119 Ordering Physician: Anne Martinez Attending/Referring Phys: [id number], Michelle Stage Director Procedure CPT: Indications: LVF Cardiac Hx: CHF Technical Quality: Fair Contrast 1: Total Dose (mL): Contrast 2: Total Dose (mL): MEASUREMENTS (Male / Female) Normal Values 2D ECHO LV Diastolic Diameter PLAX 4.1 cm 4.2 - 5.9 / 3.9 - 5.3 cm LV Systolic Diameter PLAX 3.4 cm IVS Diastolic Thickness 1.2 cm 0.6 - 1.0 / 0.6 - 0.9 cm LVPW Diastolic Thickness 1.2 cm 0.6 - 1.0 / 0.6 - 0.9 cm LV Relative Wall Thickness 0.6 RV Internal Dim ED PLAX 3.7 cm LVOT Diameter 2.0 cm LA Systolic Diameter LX 4.1 cm 3.0 - 4.0 / 2.7 - 3.8 cm MV Area Planimetry 13.4 cm??? LV Diastolic Volume MOD BP 63.9 cm??? 67 - 155 / 56 - 104 cm??? LV Systolic Volume MOD BP 30.2 cm??? 22 - 58 / 19 - 49 cm??? LV Ejection Fraction MOD BP 52.7 % >= 55 % LV Diastolic Volume MOD 4C 62.6 cm??? LV Systolic Volume MOD 4C 26.8 cm??? LV Ejection Fraction MOD 4C 57.3 % LV Diastolic Length 4C 6.5 cm LV Systolic Length 4C 5.3 cm LV Diastolic Volume MOD 2C 60.9 cm??? LV Systolic Volume MOD 2C 30.9 cm??? LV Ejection Fraction MOD 2C 49.3 % LV Diastolic Length 2C 6.1 cm LV Systolic Length 2C 5.9 cm Ascending Aorta Diameter 2.4 cm M-MODE Aortic Root Diameter MM 3.8 cm LA Systolic Diameter MM 3.8 cm LA Ao Ratio MM 1.0 MV E Point Septal Separation 3.5 cm AV Cusp Separation MM 2.1 cm DOPPLER AV Peak Velocity 121.5 cm/s AV Peak Gradient 5.9 mmHg LVOT Peak Velocity 87.0 cm/s LVOT Peak Gradient 3.0 mmHg AV Area Cont Eq pk 2.3 cm??? Mitral E Point Velocity 54.4 cm/s Mitral A Point Velocity 89.8 cm/s Mitral E to A Ratio 0.6 MV Deceleration Time 167.7 ms MV E' Velocity 3.7 cm/s Mitral E to MV E' Ratio 14.7 Pulmonary Vein S/D Ratio 2.0 Pulmonary Vein A to Mitral A Rat 0.4 TR Peak Velocity 156.0 cm/s TR Peak Gradient 9.7 mmHg Right Ventricular Systolic Press 14.7 mmHg PV Peak Velocity 100.8 cm/s PV Peak Gradient 4.1 mmHg FINDINGS Left Ventricle Mildly impaired LV function was EF of around 45%.. Septal hypertrophy on basal level.grade 1 diastolic dysfunction. Normal basal systolic function. Right Ventricle Normal right ventricular size and function. Right Atrium Normal right atrial size. Left Atrium Left atrial dilatation. Mitral Valve Mitral valve thickened. Moderate thickening/calcification of the anterior mitral valve leaflet. Mitral annular calcification. Minimal mitral stenosis. Trace to mild mitral regurgitation. Aortic Valve Trileaflet aortic valve. Diffuse thickening (sclerosis) of the aortic valve cusps without reduced excursion. Tricuspid Valve Trace to mild tricuspid regurgitation. Pulmonic Valve Pulmonic valve not well visualized. Pericardium Normal pericardium. No pericardial effusion. Aorta Normal size aortic root and proximal ascending aorta. CONCLUSIONS Mildly impaired LV function was EF around 45% Previewed by: Dr. Hima Brooke MD (Electronically Signed) Final Date: 19 November 2022 11:45
[2022-11-19] MEDS ORDERED: MELATONIN 5 MG TABLET PO PRN (14:18)
[2022-11-19] MEDS ORDERED: QUEtiapine 25 MG TAB PO PRN (14:19)
--- NOTE | 2022-11-19 17:10 | P.CN ---
Psychiatric Consult - . Consult date: 11/19/22 Consult:: 11/19/22 13:22 IDENTIFYING DATA: This patient is a [72 yo female who is , has one son that she lives with in a house.] REASON FOR REFERRAL: Psychiatry was consulted for ["irrational thinking, refusing surgery on hip"] HISTORY OF PRESENT ILLNESS: The patient presented to the hospital initially for a trip and fall. she initially was resistant to the hip surgery which was recommended by the ortho team however patient ended up agreeing to the surgery which took place yesterday. she is post op day #1 today for closed reduction with insertion of intertrochanteric nail in Left hip. Patients there is claims that patient was suspicious, not taking pain medications at this time despite being offered. Patient was seen lying in bed today and agreeable to speak to publications writer. She was fairly pleasant during the interaction however was rambling at times and circumstantial. She was attempting to cooperate as best she could. She spoke briefly about having a fall on her left leg and claims "I had 3 bad breaks is what they told me". She states that she needs help to ambulate. She claims that she was told "not to move much right now because of the surgery". She is stating that she is willing to go to rehab and states that she is trusting doctors and her team of surgeons. She states that she had trouble "accepting what had happened" however states that "it makes sense now". She claims that her sleep has been on and off however at this time is claiming that she does not want any medications. At this time patient denies any suicidal or homical ideations, intent or plan. Patient denies any auditory, visual hallucinations and denies any paranoia or delusions. Patients admits to using [no recreational drugs] PAST PSYCHIATRIC HISTORY: Patient has no known psychiatric hx]. [Patient denies being on any psychiatric medications.] [Patient denies any previous psychiatric hospitalizations.] [Patient denies any psychiatric outpatient follow-up.] she did state that when she was younger she saw a therapist/counsellor. [Patient denies any history of suicide attempts in the past.] Additional Past Medical History / Comment(s): Raynauds. Irregular heartbeat. History of Any Multi-Drug Resistant Organisms: None Reported Past Surgical History: Tonsillectomy Past Psychological History: No Psychological Hx Reported Smoking Status: Never smoker Past Alcohol Use History: None Reported Past Drug Use History: None Reported ALLERGIES: as per EMR. CHEMICAL DEPENDENCY HISTORY: as per HPI. FAMILY PSYCHIATRIC/SUBSTANCE USE HISTORY: [denies] SOCIAL HISTORY: Patient was born and raised in [place], claims that she completed high school and did some college. she has one song who she currenly lives with. she is , denies any legal hx. MENTAL STATUS EXAM: General Appearance: Patient appears to be thin, wearing glasses, stated age is alert, pleasant, and cooperative. Patient appears to have [fair] hygiene and grooming wearing hospital gown with [fair] eye contact. Behavior: [Patient is calmly lying in bed without any agitated behavior.] directable Speech: Patient's speech is fluent and nonpressured. rambles at times. Mood/Affect: Patient reports their mood is "[alright]", affect is congruent Suicidality/Homicidality: Patient denies having any suicidal or homicidal ideation intent or plan. Perceptions: Patient denies any visual hallucinations [and denies any auditory hallucinations] Though content/process: There is no evidence of any delusional thought content and thought process is linear and goal-directed. rables at times, over inclusive of some details. Memory and concentration: AOX2 does not know todays year, knows the correct day and month however. grossly intact for the purposes of this session. Can spell "WORLD" backwards Judgment and insight: fair IMPRESSIONS: Possibly neurocognitive impairment r/o delirum PLAN: -At this time patient DOES [NOT] meet criteria for inpatient psychiatric admission. [-Delirium precautions recommended with patient including - avoiding use of narcotics and CLINICAL NURSE sedatives, limit anticholinergic medications when possible, frequent re-orientation, minimize use of restraints, open window shades during the day and close them at night] -Would recommend the following medication changes/additions: []spoke with patient about different medications to help with sleep and safe pain meds however patient states that she does not want to take more medications than she has to. added melatonin prn for sleep and seroquel prn for agitation/psychosis if needed if patient becomes delirious. please attempt to limit opiate pain meds as this will possibly put patient into delirum as she is higher risk for it. [-Communicated plan to patient's nurse] [-Psychiatry will sign off at this time] -Please contact with any questions. 11/19/22 14:19 11/19/22 17:03
[2022-11-19] MEDS ORDERED: fentaNYL (PF) 50 MCG/ML 2 ML AMP ONE (17:20)
[2022-11-19] MEDS ORDERED: PHENYLEPHRINE-0.9% NACL SYG 1,000 MCG/10 ML SYRINGE ONE (17:20)
[2022-11-19] MEDS ORDERED: MIDAZOLAM 2 MG/2 ML VIAL ONE (17:20)
[2022-11-19] MEDS ORDERED: KETAMINE 10 MG/ML 20 ML VIAL ONE (17:20)
[2022-11-19] MEDS: SENNOSIDES-DOCUSATE SODIUM 1 EACH TAB PO SCH (21:04)
[2022-11-20] MEDS: HEPARIN SODIUM,PORCINE/PF 5,000 UNIT/0.5 ML SYRINGE SQ SCH ×3 (00:05→17:34)
[2022-11-20] MEDS: LACTATED RINGERS 1,000 ML IV SCH ×3 (02:38→23:47)
--- NOTE | 2022-11-20 10:00 | P.PN ---
Subjective Progress Note Date: 11/20/22 Principal diagnosis: Left hip fracture. Status post IT nail left hip. This is a 72-year-old female who is postop day #2 status post closed reduction with insertion of intertrochanteric nail left hip. The patient is resting comfortably. She does awaken for the exam. She is much calmer her today. I'm able to have a fairly normal conversation with her this morning. She complains of minimal pain. Vital signs are stable. Objective - Vital Signs Vital signs: Vital Signs Temp 97.7 F 11/20/22 07:13 Pulse 113 H 11/20/22 07:13 Resp 15 11/20/22 07:13 BP 158/87 11/20/22 07:13 Pulse Ox 96 11/20/22 07:13 FiO2 Intake & Output 11/19/22 11/20/22 11/20/22 18:59 06:59 18:59 Output Total 500 0 150 Balance -500 0 -150 Output: Urine 500 0 150 - Exam This is a 72-year-old female in no acute distress. She is alert and oriented to person and place. Exam of the left hip reveals that her dressings are clean, dry and intact. There is mild soft tissue swelling about the hip and thigh. She has full foot and ankle motion without difficulty or pain. Neurovascular status to the lower extremity is intact. - Labs CBC & Chem 7: 11/19/22 05:39 11/19/22 05:39 Assessment and Plan (1) Intertrochanteric fracture of left hip Current Visit: Yes Status: Acute Code(s): S72.142A - DISPLACED INTERTROCHANTERIC FRACTURE OF LEFT FEMUR, INIT SNOMED Code(s): 391902565 (2) History of noncompliance with medical treatment Current Visit: Yes Status: Acute Code(s): Z91.199 - PT NONCOMPL WITH OTHER MED TRTMT AND REGIMEN D/T UNSP REASON SNOMED Code(s): 517347254 (3) Femur fracture Current Visit: Yes Status: Acute Code(s): S72.90XA - UNSP FRACTURE OF UNSP FEMUR, INIT ENCNTR FOR CLOSED FRACTURE SNOMED Code(s): 34607616 Plan: The clinical findings are discussed the patient. We had a discussion about possible rehabilitation placement postoperatively. Patient states that she will be going home. I advised her that we will need to see how she does with physical therapy and make further recommendations at that point.
[2022-11-20] MEDS: VERAPAMIL SR 180 MG TABLET.ER PO SCH (10:07)
[2022-11-20] MEDS: ENOXAPARIN 40 MG/0.4 ML SYRINGE SQ SCH (10:07)
[2022-11-20] MEDS: SODIUM CHLORIDE 0.9% 1,000 ML IV SCH (10:10)
--- NOTE | 2022-11-20 11:23 | P.PN ---
Subjective Progress Note Date: 11/20/22 Patient seen working with physical therapy today, has no new complaints. Gen: awake, alert HEENT: normocephalic, atraumatic, good hearing acuity, moist mucous membranes Resp: good air exchange, breathing comfortably with no accessory muscle use CVS: good distal perfusion x 4, GI: soft, NTTP, ND : no SPT, no CVAT, abraham catheter not present MSK: no pitting edema, no clubbing Neuro: non-focal, moving all extremities Psych: cooperative, euthymic mood Assessment/plan: Today, patient is afebrile, 158/87, heart rate 113, 96% on room air CBC was ordered for tomorrow by primary team I ordered basic metabolic panel, magnesium Acute comminuted left intertrochanteric fracture of left femur , secondary to mechanical fall. Status post hip repair Pain management as per primary team PT OT consult, likely recommendation will be [facility] facility for rehab, however, patient refuses rehab at this time. Psych consult note reviewed, patient is not amenable to starting new medications at this time Acute blood loss anemia secondary to surgery Trend CBC Start oral iron daily h/o of irregular heart beat h/o raynauds resume verapamil 180 mg daily PO DVT prophylaxis: Will defer to primary team Objective - Vital Signs Vital signs: Vital Signs Temp 97.7 F 11/20/22 07:13 Pulse 113 H 11/20/22 07:13 Resp 15 11/20/22 07:13 BP 158/87 11/20/22 07:13 Pulse Ox 96 11/20/22 07:13 FiO2 Intake & Output 11/19/22 11/20/22 11/20/22 18:59 06:59 18:59 Output Total 500 0 150 Balance -500 0 -150 Output: Urine 500 0 150 - Labs CBC & Chem 7: 11/19/22 05:39 11/19/22 05:39
[2022-11-20] MEDS: FERROUS SULFATE 325 MG TAB PO SCH (17:34)
[2022-11-20 23:00] LABS: Basophils # (A) 0.02 X 10*3/uL (0.00-0.10); Basophils % (A) 0.3 %; Eosinophils # (A) 0.01 X 10*3/uL (0.04-0.35); Eosinophils % (A) 0.1 %; HCT 27.1 % (37.2-46.3); HGB 8.9 g/dL (12.0-15.0); Immature Grans, Automated 0.3 %; Lymphocytes # (A) 1.18 X 10*3/uL (0.90-5.00); Lymphocytes % (A) 16.5 %; MCH 32.4 pg (27.0-32.0); MCHC 32.8 g/dL (32.0-37.0); MCV 98.5 fL (80.0-97.0); Mean Platelet Volume 9.6 fL (9.5-12.2); Monocytes # (A) 0.69 X 10*3/uL (0.20-1.00); Monocytes % (A) 9.7 %; NRBC Per 100 WBC 0 /100 WBCS (0.0-0.0); Neutrophils # (A) 5.22 X 10*3/uL (1.80-7.70); Neutrophils % (A) 73.1 %; Platelet Count 138 X 10*3/uL (140-440); RBC 2.75 X 10*6/uL (4.10-5.20); RDW 12.6 % (11.5-14.5); WBC 7.14 X 10*3/uL (4.50-10.00)
[2022-11-20] MEDS: SENNOSIDES-DOCUSATE SODIUM 1 EACH TAB PO SCH (23:27)
[2022-11-21] MEDS: HEPARIN SODIUM,PORCINE/PF 5,000 UNIT/0.5 ML SYRINGE SQ SCH ×3 (03:25→18:15)
[2022-11-21] MEDS: VERAPAMIL SR 180 MG TABLET.ER PO SCH (09:21)
[2022-11-21] MEDS: ENOXAPARIN 40 MG/0.4 ML SYRINGE SQ SCH (09:21)
[2022-11-21 09:23] LABS: African American GFR (CKD) 99.6 (60.0-200.0); Anion Gap 8.8 mmol/L (10.00-18.00); Blood Urea Nitrogen 14.7 mg/dL (9.0-27.0); Calcium 8.8 mg/dL (8.7-10.3); Carbon Dioxide 28.2 mmol/L (20.0-27.5); Magnesium 2.2 mg/dL (1.5-2.4); Potassium 3.8 mmol/L (3.5-5.5)
--- NOTE | 2022-11-21 11:13 | P.PN ---
Subjective Progress Note Date: 11/21/22 Principal diagnosis: Left hip fracture. Status post IT nail left hip. This is a 72-year-old female who is postop day #3 status post closed reduction with insertion of intertrochanteric nail left hip. The patient is sitting up in a chair today. She complains of minimal pain. Vital signs are stable. Objective - Vital Signs Vital signs: Vital Signs Temp 98.2 F 11/21/22 07:00 Pulse 100 11/21/22 07:35 Resp 17 11/21/22 07:35 BP 110/68 11/21/22 07:00 Pulse Ox 99 11/21/22 07:00 FiO2 Intake & Output 11/20/22 11/21/22 11/21/22 18:59 06:59 18:59 Intake Total 425 Output Total 300 Balance 125 Intake: Oral 425 Output: Urine 300 Other: Voiding Method Bedside Commode Bedside Commode Bedside Commode # Voids 1 # Bowel Movements 1 - Exam This is a 72-year-old female in no acute distress. She is alert and oriented to person and place. Exam of the left hip reveals that her dressings are clean, dry and intact. There is mild soft tissue swelling about the hip and thigh. She has full foot and ankle motion without difficulty or pain. Neurovascular status to the lower extremity is intact. - Labs CBC & Chem 7: 11/20/22 20:05 11/21/22 04:51 Labs: Abnormal Lab Results - Last 24 Hours (Table) 11/20/22 11/21/22 Range/Units 20:05 04:51 RBC 2.75 L (4.10-5.20) X 10*6/uL Hgb 8.9 L (12.0-15.0) g/dL Hct 27.1 L (37.2-46.3) % MCV 98.5 H (80.0-97.0) fL MCH 32.4 H (27.0-32.0) pg Plt Count 138 L (140-440) X 10*3/uL Eosinophils # 0.01 L (0.04-0.35) X 10*3/uL Carbon Dioxide 28.2 H (20.0-27.5) mmol/L Anion Gap 8.80 L (10.00-18.00) mmol/L BUN/Creatinine Ratio 21.00 H (12.00-20.00) Ratio Glucose 122 H (70-110) mg/dL Assessment and Plan (1) Intertrochanteric fracture of left hip Current Visit: Yes Status: Acute Code(s): S72.142A - DISPLACED INTERTROCHANTERIC FRACTURE OF LEFT FEMUR, INIT SNOMED Code(s): 098929040 (2) History of noncompliance with medical treatment Current Visit: Yes Status: Acute Code(s): Z91.199 - PT NONCOMPL WITH OTHER MED TRTMT AND REGIMEN D/T UNSP REASON SNOMED Code(s): 164878941 (3) Femur fracture Current Visit: Yes Status: Acute Code(s): S72.90XA - UNSP FRACTURE OF UNSP FEMUR, INIT ENCNTR FOR CLOSED FRACTURE SNOMED Code(s): 52515636 Plan: The clinical findings are discussed the patient. We had a discussion about possible rehabilitation placement postoperatively. The patient is considering inpatient rehab at discharge. We will see how she does tomorrow with PT and plan discharge possibly tomorrow.
--- NOTE | 2022-11-21 11:39 | P.PN ---
Subjective Progress Note Date: 11/21/22 Patient has no complaints today. She is more amenable to rehab placement today, but would like to see how she feels tomorrow. Gen: awake, alert HEENT: normocephalic, atraumatic, good hearing acuity, moist mucous membranes Resp: good air exchange, breathing comfortably with no accessory muscle use CVS: good distal perfusion x 4, GI: soft, NTTP, ND : no SPT, no CVAT, abraham catheter not present MSK: no pitting edema, no clubbing Neuro: non-focal, moving all extremities Psych: cooperative, euthymic mood Assessment/plan: Today, patient is afebrile, 110/68, heart rate 100, 99% on room air CBC today is pending Basic metabolic panel reviewed, unremarkable Magnesium is 2.2. Repeat CBC, basic metabolic panel, magnesium tomorrow Acute comminuted left intertrochanteric fracture of left femur , secondary to mechanical fall. Status post hip repair Pain management as per primary team PT OT consult, likely recommendation will be senior care facility for rehab, however, patient refuses rehab at this time. Psych consult note reviewed, patient is not amenable to starting new medications at this time Acute blood loss anemia secondary to surgery Trend CBC Start oral iron daily h/o of irregular heart beat h/o raynauds resume verapamil 180 mg daily PO DVT prophylaxis: Will defer to primary team Objective - Vital Signs Vital signs: Vital Signs Temp 98.2 F 11/21/22 07:00 Pulse 100 11/21/22 07:35 Resp 17 11/21/22 07:35 BP 110/68 11/21/22 07:00 Pulse Ox 99 11/21/22 07:00 FiO2 Intake & Output 11/20/22 11/21/22 11/21/22 18:59 06:59 18:59 Intake Total 425 Output Total 300 Balance 125 Intake: Oral 425 Output: Urine 300 Other: Voiding Method Bedside Commode Bedside Commode Bedside Commode # Voids 1 # Bowel Movements 1 - Labs CBC & Chem 7: 11/20/22 20:05 11/21/22 04:51 Labs: Abnormal Lab Results - Last 24 Hours (Table) 11/20/22 11/21/22 Range/Units 20:05 04:51 RBC 2.75 L (4.10-5.20) X 10*6/uL Hgb 8.9 L (12.0-15.0) g/dL Hct 27.1 L (37.2-46.3) % MCV 98.5 H (80.0-97.0) fL MCH 32.4 H (27.0-32.0) pg Plt Count 138 L (140-440) X 10*3/uL Eosinophils # 0.01 L (0.04-0.35) X 10*3/uL Carbon Dioxide 28.2 H (20.0-27.5) mmol/L Anion Gap 8.80 L (10.00-18.00) mmol/L BUN/Creatinine Ratio 21.00 H (12.00-20.00) Ratio Glucose 122 H (70-110) mg/dL
[2022-11-21] MEDS: SODIUM CHLORIDE 0.9% 1,000 ML IV SCH (18:15)
[2022-11-21] MEDS: FERROUS SULFATE 325 MG TAB PO SCH (18:15)
[2022-11-21] MEDS: SENNOSIDES-DOCUSATE SODIUM 1 EACH TAB PO SCH (20:57)
[2022-11-21] MEDS: LACTATED RINGERS 1,000 ML IV SCH (20:57)
[2022-11-22] MEDS: LACTATED RINGERS 1,000 ML IV SCH ×3 (02:15→20:06)
[2022-11-22] MEDS: HEPARIN SODIUM,PORCINE/PF 5,000 UNIT/0.5 ML SYRINGE SQ SCH ×4 (02:15→22:50)
[2022-11-22] MEDS: SODIUM CHLORIDE 0.9% 1,000 ML IV SCH ×2 (02:15→20:06)
[2022-11-22] MEDS: ENOXAPARIN 40 MG/0.4 ML SYRINGE SQ SCH (08:40)
[2022-11-22] MEDS: VERAPAMIL SR 180 MG TABLET.ER PO SCH (08:40)
[2022-11-22 09:33] LABS: African American GFR (CKD) 104.8 (60.0-200.0); Blood Urea Nitrogen 18.6 mg/dL (9.0-27.0); Calcium 9.2 mg/dL (8.7-10.3); Magnesium 2.4 mg/dL (1.5-2.4); Non-African American GFR(CKD) 90.4 (60.0-200.0); Potassium 3.8 mmol/L (3.5-5.5)
[2022-11-22 10:40] LABS: Basophils # (A) 0.03 X 10*3/uL (0.00-0.10); Basophils % (A) 0.4 %; Eosinophils # (A) 0.02 X 10*3/uL (0.04-0.35); Eosinophils % (A) 0.3 %; HCT 29.9 % (37.2-46.3); HGB 9.5 g/dL (12.0-15.0); Immature Grans, Automated 0.3 %; Lymphocytes # (A) 1.25 X 10*3/uL (0.90-5.00); Lymphocytes % (A) 17.1 %; MCH 31.6 pg (27.0-32.0); MCHC 31.8 g/dL (32.0-37.0); MCV 99.3 fL (80.0-97.0); Mean Platelet Volume 9.8 fL (9.5-12.2); Monocytes # (A) 0.66 X 10*3/uL (0.20-1.00); NRBC Per 100 WBC 0 /100 WBCS (0.0-0.0); Neutrophils # (A) 5.34 X 10*3/uL (1.80-7.70); Neutrophils % (A) 72.9 %; Platelet Count 226 X 10*3/uL (140-440); RBC 3.01 X 10*6/uL (4.10-5.20); RDW 12.7 % (11.5-14.5); WBC 7.32 X 10*3/uL (4.50-10.00)
--- NOTE | 2022-11-22 10:57 | P.PN ---
Subjective Progress Note Date: 11/22/22 Patient has no complaints today. Patient is medically cleared for discharge. Gen: awake, alert HEENT: normocephalic, atraumatic, good hearing acuity, moist mucous membranes Resp: good air exchange, breathing comfortably with no accessory muscle use CVS: good distal perfusion x 4, GI: soft, NTTP, ND : no SPT, no CVAT, abraham catheter not present MSK: no pitting edema, no clubbing Neuro: non-focal, moving all extremities Psych: cooperative, euthymic mood Assessment/plan: Today, patient is afebrile, 115/68, heart rate 104, 97% on room air CBC today shows anemia down to 9.5, stable Basic metabolic panel reviewed, unremarkable Magnesium is 2.4 We can stop trending labs at this time Acute comminuted left intertrochanteric fracture of left femur , secondary to mechanical fall. Status post hip repair Pain management as per primary team PT OT consult, likely recommendation will be detention facility for rehab, however, patient refuses rehab at this time. Psych consult note reviewed, patient is not amenable to starting new medications at this time Acute blood loss anemia secondary to surgery Trend CBC Start oral iron daily h/o of irregular heart beat h/o raynauds resume verapamil 180 mg daily PO DVT prophylaxis: Will defer to primary team Objective - Vital Signs Vital signs: Vital Signs Temp 97.8 F 11/22/22 07:31 Pulse 104 H 11/22/22 08:40 Resp 17 11/22/22 08:40 BP 115/68 11/22/22 07:31 Pulse Ox 97 11/22/22 07:31 FiO2 Intake & Output 11/21/22 11/22/22 11/22/22 18:59 06:59 18:59 Other: Voiding Method Bedside Commode Toilet Toilet # Voids 4 1 - Labs CBC & Chem 7: 11/22/22 04:40 11/22/22 04:40 Labs: Abnormal Lab Results - Last 24 Hours (Table) 11/22/22 11/22/22 Range/Units 04:40 04:40 RBC 3.01 L (4.10-5.20) X 10*6/uL Hgb 9.5 L (12.0-15.0) g/dL Hct 29.9 L (37.2-46.3) % MCV 99.3 H (80.0-97.0) fL MCHC 31.8 L (32.0-37.0) g/dL Eosinophils # 0.02 L (0.04-0.35) X 10*3/uL Carbon Dioxide 29.0 H (20.0-27.5) mmol/L Anion Gap 9.00 L (10.00-18.00) mmol/L BUN/Creatinine Ratio 31.00 H (12.00-20.00) Ratio
[2022-11-22] MEDS: FERROUS SULFATE 325 MG TAB PO SCH (11:51)
[2022-11-22] MEDS: SENNOSIDES-DOCUSATE SODIUM 1 EACH TAB PO SCH (20:05)
[2022-11-23] MEDS: HEPARIN SODIUM,PORCINE/PF 5,000 UNIT/0.5 ML SYRINGE SQ SCH ×2 (08:32→14:48)
[2022-11-23] MEDS: LACTATED RINGERS 1,000 ML IV SCH ×2 (08:32→14:49)
[2022-11-23] MEDS: VERAPAMIL SR 180 MG TABLET.ER PO SCH (08:34)
[2022-11-23] MEDS: ENOXAPARIN 40 MG/0.4 ML SYRINGE SQ SCH (08:36)
[2022-11-23] MEDS: FERROUS SULFATE 325 MG TAB PO SCH (11:30)
--- NOTE | 2022-11-23 13:37 | P.DS ---
Providers Date of admission: 11/18/22 08:05 Expected date of discharge: 11/23/22 Attending physician: Kaitlin Abad DO Consults: 11/17/22 20:55 Consult Physician Urgent Consulting Provider: Cj Oneal Consult Reason/Comments: surgical clearance Do you want consulting provider notified?: Yes 11/18/22 04:43 Consult Physician Routine Consulting Provider: Hima Brooke Consult Reason/Comments: patient request to talk to cards Do you want consulting provider notified?: Yes, Notify in am 11/18/22 09:33 Consult Physician Urgent Consulting Provider: Bladimir Ibarra Consult Reason/Comments: irrational thinking refusing needed surgery on hip Do you want consulting provider notified?: Yes Primary care physician: Stated None - Discharge Diagnosis(es) (1) Intertrochanteric fracture of left hip Current Visit: Yes Status: Acute Hospital Course: This is an 72-year-old female who sustained a fracture of her left hip after a fall. The patient presented for evaluation in the emergency room. After discussion and consideration patient elects to proceed with left hip cephalo- medullary nail. The patient is seen preoperatively by Dr. Abad and medically cleared for surgery by internal medicine. Patient is admitted to [facility] on 11/17/2022 and left hip cephalo- medullary nail is performed on 11/18/2022. The procedure is performed without complication or sequelae. The patient is doing well postoperatively. Labs and vital signs are stable on day of discharge. On day of discharge patient's hip incision is healing well. There is minimal erythema. There is no drainage noted at this time. There is minimal soft tissue swelling to the hip and thigh. Patient has full foot and ankle motion without difficulty or pain. Calf is soft and nontender to palpation. Neurovascular status to the left lower extremity is intact. Patient is discharged to rehab in good condition. Please see med rec for accurate list of home medications. Patient Condition at Discharge: Fair Plan - Discharge Summary New Discharge Prescriptions: New Ferrous Sulfate [Iron (65 MG Elemental)] 325 mg PO W/LUNCH #30 tab Acetaminophen Tab [Tylenol] 500 mg PO Q6H #10 tablet Aspirin [Adult Low Dose Aspirin EC] 81 mg PO BID #1 tab QUEtiapine [SEROquel] 25 mg PO BID PRN #30 tab PRN Reason: Agitation Or Acute Psychosis Continue Verapamil HCl [Verapamil ER] 180 mg PO DAILY Discharge Medication List Verapamil HCl [Verapamil ER] 180 mg PO DAILY 10/15/17 [History] Acetaminophen Tab [Tylenol] 500 mg PO Q6H #10 tablet 11/22/22 [Rx] Aspirin [Adult Low Dose Aspirin EC] 81 mg PO BID #1 tab 11/22/22 [Rx] Ferrous Sulfate [Iron (65 MG Elemental)] 325 mg PO W/LUNCH #30 tab 11/22/22 [Rx] QUEtiapine [SEROquel] 25 mg PO BID PRN #30 tab 11/22/22 [Rx] Follow up Appointment(s)/Referral(s): Kaitlin Abad DO [Doctor of Osteopathic Medicine] - 12/15/22 1:35 pm None,Stated [Primary Care Provider] - 1-2 days Activity/Diet/Wound Care/Special Instructions: May bear weight as tolerated with walker. May shower. May change Tegaderm dressings 1 week postop. Follow-up with Dr. Abad in 3-4 weeks. Discharge Disposition: TRANSFER TO SNF/ECF
[2022-11-23] MEDS: SODIUM CHLORIDE 0.9% 1,000 ML IV SCH (14:49)
--- NOTE | 2022-11-23 15:36 | P.PN ---
Subjective Progress Note Date: 11/23/22 Patient is a 72-year-old female here after a fall with comminuted left intertrochanteric femur fracture. Patient seen and examined at bedside. She states her pain is well controlled. She has been moving better each day. She denies any chest pain, shortness of breath, nausea, vomiting. Son is at bedside and all questions were answered. We're working on arranging placement for rehab. Vital signs reviewed General: nontoxic, no distress, appears at stated age Cardiovascular: S1S2 reg, no murmur, positive posterior tibial pulse bilateral, Lungs: CTA bilateral, no rhonchi, no rales , no accessory muscle use Abdominal: soft, nontender to palpation, no guarding, no appreciable organomegaly Ext: no gross muscle atrophy, no edema, no contractures Neuro: CN II-XI grossly intact, no focal neuro deficits Psych: Alert, oriented, appropriate affect Assessment: 72-year-old female status post left hip IM nailing Acute blood loss anemia, anticipated outcome of surgery Thrombocytopenia, resolved History of Raynaud's on an irregular heart beat Data Review: Morning vitals are temperature of 98.6, respirations 17, pulse 98, blood pressure 121/72, and she is satting 99% on room air Plan: - No need to follow labs - Ferrous sulfate 325 mg daily - Has not required [place] or Dilaudid or morphine in the last 72 hours. -IV is currently at KVO -Continue with verapamil 180 mg daily Thank you for allowing us to participate in the care of this pleasant patient. Do not hesitate to contact us with questions. Someone can be reached from the [facility] hospitalist group all hours of the day at [phone] or via [employer]. This dictation was prepared using [employer] voice recognition software. Though every attempt is made to correct errors during during dictation some may still exist. Objective - Vital Signs Vital signs: Vital Signs Temp 98.6 F 11/23/22 08:02 Pulse 98 11/23/22 08:02 Resp 20 11/23/22 08:42 BP 121/72 11/23/22 08:02 Pulse Ox 99 11/23/22 08:02 FiO2 Intake & Output 11/22/22 11/23/22 11/23/22 18:59 06:59 18:59 Intake Total 118 400 Balance 118 400 Intake: Oral 118 400 Other: Voiding Method Toilet Toilet Toilet # Voids 1 1 - Labs CBC & Chem 7: 11/22/22 04:40 11/22/22 04:40
[2022-11-23 16:28] VITALS: BP 137/85; PULSE 79; RESP 19; TEMP 98
== END 2022-11-23 16:29 | DRG 481 ==
LOC: EC 18:38 → 6NMEDSUR 20:38 → OBSVTOIN 11-18 08:05 → 4SSUR 11-18 16:56
PROVIDERS: ADMIT Orthopaedic Surgery Hand Surgery; ATTEND Orthopaedic Surgery Hand Surgery
PROC: 0QS706Z Reposition Left Upper Femur with Intramedullary Internal Fixation Device, Open Approach (ICD-10-PCS; principal; 2022-11-18 10:30)
DX: S72.142A Displaced intertrochanteric fracture of left femur, initial encounter for closed fracture (principal); D62 Acute posthemorrhagic anemia; D69.6 Thrombocytopenia, unspecified; I48.0 Paroxysmal atrial fibrillation; W01.0XXA Fall on same level from slipping, tripping and stumbling without subsequent striking against object, initial encounter; I73.00 Raynaud's syndrome without gangrene; F41.9 Anxiety disorder, unspecified; E78.5 Hyperlipidemia, unspecified; F06.70 Mild neurocognitive disorder due to known physiological condition without behavioral disturbance; I10 Essential (primary) hypertension; I34.0 Nonrheumatic mitral (valve) insufficiency; Z53.29 Procedure and treatment not carried out because of patient's decision for other reasons; Z91.199 Patient's noncompliance with other medical treatment and regimen due to unspecified reason; Z79.899 Other long term (current) drug therapy; Z86.79 Personal history of other diseases of the circulatory system; Z63.5 Disruption of family by separation and divorce
CPT/HCPCS: 71045; 73502; 80048; 80053; 83735; 85025; 85610; 85730; 93306; 99285